=== PATIENT | male | born 1955 | race African-American/Black ===

== ENCOUNTER 2016-10-18 00:51 | Emergency (ER) | payer OTHER ==
[~2016-10-18 00:51] MED LIST: ACETAMINOPHEN PO; ACID CONTROL20 MG PO; ALBUTEROL17 GM INH; ALENDRONATE SOD70 MG PO; AMLODIPINE BESY10 MG PO; AMOXICILLIN875 MG PO; ASPIRIN ENTERI325 M1 PO; BENAZEPRIL PO; CIPRO PO; COLACE50 MG PO; COMBIVENT INH14.7 GM INH; CORRECTOL5 MG PO; DELSYM30 MG/5 ML PO; DOC-Q-LACE100 MG PO; E-MYCIN250 MG PO; EC-NAPROSYN500 MG PO; ERYTHROMYCIN TOP; FAMOTIDINE20 M1 PO; FLOVENT HFA12 GM INH; FOSAMAX PO; FOSAMAX70 MG PO; GLUCOPHAGE XR500 MG PO; GLUCOPHAGE500 MG PO; HYDROCODON-ACE1 EAC9 PO; K-DUR20 ME1 PO; KCL PO; LABETALOL HCL200 MG PO; LASIX PO; LASIX20 MG PO; LEVAQUIN PO; LIPITOR PO; LISINOPRIL PO; LISINOPRIL10 MG PO; LISINOPRIL5 MG PO; LORTAB 10/500 T1 TAB PO; LORTAB 7.5-5001 TAB PO; LORTAB 7.51 TAB 7.5/ PO; MEDROL DOSEPAK4 MG PO; METFORMIN PO; MULTIVITAMIN W/1 TAB PO; NORVASC10 MG PO; PHENERGAN W/CO120 ML PO; POTASSIUM CHLO10 MEQ PO; PREVACID PO; PROMETHAZINE V240 ML PO; PROMETHAZINE-D240 ML PO; STOOL SOFTENER PO; STOOL SOFTENER50 MG PO; TUSSIONEX PENN473 ML PO; VALACYCLOVIR500 MG PO; VALTREX PO; VALTREX500 MG PO; VASOTEC PO; VOLTAREN50 MG PO; [UNRECOGNIZED DRUG - OTHER] PO
== END 2016-10-18 06:50 | disposition home or self-care (01) ==
LOC: CED 00:51
DX: F10.129 Alcohol abuse with intoxication, unspecified (principal); E11.9 Type 2 diabetes mellitus without complications; I11.0 Hypertensive heart disease with heart failure; I50.9 Heart failure, unspecified; F17.200 Nicotine dependence, unspecified, uncomplicated; Z91.041 Radiographic dye allergy status
CPT/HCPCS: 99284

== ENCOUNTER 2016-11-05 06:00 | Inpatient (IN) | payer OTHER ==
--- NOTE | ~2016-11-05 | CO ---
Unit #: [id number] #: [id number] Patient: DANNY DUTTA [id number] [facility] [address] [place] [address] [id number] I MR#: [id number] NAME: DANNY DUTTA ROOM: P130 Age: 60 Sex: M Admission Date: 11/05/2016 : 1955 Attending Physician: Brijesh Rincon M.D. Primary Care Physician: Generic Doctor Not In System CONSULTATION REPORT REASON FOR CONSULTATION History of hypertension, diabetes, heart failure. SUBJECTIVE "Yea I have all that. I have heart failure, I have hypertension, I have diabetes and I just got out of [facility] yesterday and I don't have my medicines." OBJECTIVE Vital signs within normal limits. Heart regular rate and rhythm. Lungs clear to auscultation bilaterally. Noted trace edema bilateral feet. ASSESSMENT We will order medications that the patient was on upon discharge from this facility in February and we will request discharge summary from [facility]. Dictated by... Isabella Leahy/heather TD: 11/07/2016 03:27 JOB #: [id number] CONSULTATION REPORT Page 1 of 1 X Leann Ordaz APR X CONSULTATION REPORT
--- NOTE | ~2016-11-05 | PN ---
Unit #: [id number] #: [id number] Patient: DANNY DUTTA [id number] [facility] [address] [place] [address] [id number] I MR#: [id number] NAME: DANNY DUTTA ROOM: 30 Age: 60 Sex: M Admission Date: 11/05/2016 : 1955 Attending Physician: Brijesh Rincon M.D. Admitting Physician: Brijesh Rincon M.D. Primary Care Physician: Generic Doctor Not In System [facility] PROGRESS NOTES DATE November 08, 2016 DISCUSSION Mr. Dutta is a 60-year-old male, who was seen today and chart was reviewed and the case was discussed with the staff. He has been anxious, withdrawn, but has not shown any agitation, and has been cooperative with the treatment recommendations and he has been taking the medications and tolerating them fairly well with no reported side effects. MENTAL STATUS EXAMINATION Middle-aged male, who was casually dressed with fair personal hygiene and appears to be in no acute distress or discomfort. He was awake and alert with intact orientation. His mood is anxious with a congruent affect. His speech is slow and goal-directed. He reports having suicidal ideations but denies any homicidal ideations. His insight and judgment remain slightly impaired. TREATMENT PLAN 1. We will continue him on his current medications and treatment protocol, and will monitor his response to the medications, and make further adjustments as needed. 2. We will continue to followup. Dictated by... Mercedes Lim/radha TD: 11/09/2016 11:27 JOB #: [id number] Unit #: [id number] #: [id number] Patient: DANNY DUTTA PROGRESS NOTES Page 1 of 1 X Brijesh Rincon MD X PROGRESS NOTE
--- NOTE | ~2016-11-05 | PN ---
Unit #: [id number] #: [id number] Patient: DANNY DUTTA [id number] [facility] [address] [place] [address] [id number] I MR#: [id number] NAME: DANNY DUTTA ROOM: P130 Age: 60 Sex: M Admission Date: 11/05/2016 : 1955 Attending Physician: Brijesh Rincon M.D. Admitting Physician: Brijesh Rincon M.D. Primary Care Physician: Corrina Doctor Not In System [facility] PROGRESS NOTES DATE 11/09/2016 DISCUSSION Mr. Dutta is a 60-year-old male with mood disorder who was seen today and chart was reviewed and case was discussed with the staff. He remains anxious, irritable, restless, and reports persistent depressive symptoms. Meanwhile, he has been taking medications and tolerating them fairly well with no reported side effects. MENTAL STATUS EXAMINATION Middle-aged male who was casually dressed with fair personal hygiene and appears to be in no acute distress or discomfort. He was awake and alert with intact orientation. His mood was anxious with congruent affect. He denies any suicidal or homicidal ideation. His insight and judgement remains slightly impaired. TREATMENT PLAN 1. Will continue on his current treatment protocol. Will monitor response and make further adjustments as needed. 2. Will continue to follow up. Dictated by... Mercedes Lim/nigel TD: 11/09/2016 20:28 JOB #: [id number] Unit #: [id number] #: [id number] Patient: DANNY DUTTA PROGRESS NOTES Page 1 of 1 X Brijesh Rincon MD PROGRESS NOTE
--- NOTE | ~2016-11-05 | PN ---
Unit #: [id number] #: [id number] Patient: DANNY DUTTA [id number] [facility] [address] [place] [address] [id number] I MR#: [id number] NAME: DANNY DUTTA ROOM: P130 Age: 60 Sex: M Admission Date: 11/05/2016 : 1955 Attending Physician: Brijesh Rincon M.D. Admitting Physician: Brijesh Rincon M.D. Primary Care Physician: Generic Doctor Not In System [facility] PROGRESS NOTES DATE November 06, 2016 DISCUSSION Mr. Dutta is a 60-year-old male, who was seen today and chart was reviewed and the case was discussed with the staff. He has been anxious, depressed, restless, and rather seclusive to himself. Meanwhile, he has been cooperative with the treatment recommendations and he has been taking the medications and tolerating them fairly well. MENTAL STATUS EXAMINATION Middle-aged male, who was casually dressed with fair personal hygiene and appears to be in no acute distress or discomfort. He was awake and alert with intact orientation. His mood is anxious with a congruent affect. He denies any suicidal or homicidal ideations. His insight and judgment remain slightly impaired. TREATMENT PLAN 1. We will continue him on his current medications and treatment protocol, and will monitor his response to the medications, and make further adjustments as needed. 2. We will continue to followup. Dictated by... Mercedes Lim/radha TD: 11/07/2016 06:51 JOB #: [id number] Unit #: [id number] #: [id number] Patient: DANNY DUTTA [facility] PROGRESS NOTES Page 1 of 1 X Brijesh Rincon MD X PROGRESS NOTE
--- NOTE | ~2016-11-05 | PA ---
Unit #: [id number] #: [id number] Patient: [facility]UTTA [id number] [facility] [address] [place] [address] [id number] I MR#: [id number] NAME: DANNY DUTTA ROOM: P130 Age: 60 Sex: M Admission Date: 11/05/2016 : 1955 Date of Assessment: Attending Physician: Brijesh Rincon M.D. Admitting Physician: Brijesh Rincon M.D. Primary Care Physician: Corrina Doctor Not In System PSYCHIATRIC ASSESSMENT DATE OF SERVICE 11/05/2016. IDENTIFYING DATA Mr. Dutta is a 60-year-old single male, who is a resident of [place], [place], and is known to us from previous encounter and he was transferred back to us from [facility] Emergency Room on a voluntary basis. CHIEF COMPLAINT "I'm having suicidal thoughts." HISTORY OF PRESENT ILLNESS Mr. Dutta is a 60-year-old male with history of mood disorder and substance abuse, who was transferred to us from [facility] Emergency Room, where he presented stating he was having suicidal thoughts "I got into a fight with my cousin and threatened to shoot him and shoot myself. I need to get back on my meds, Seroquel and trazodone, I've not had it in a year, I've been in nursing home." The ER nurse reported that the patient arrived complaining of shortness of breath and suicidal ideation and plan to shoot himself and his drug screen was positive for benzodiazepines and cocaine and his blood alcohol level was 0.168. He was medically cleared and then transferred to us. SUBSTANCE ABUSE HISTORY The patient reports history of substance abuse and dependence including alcohol, benzodiazepines, and cocaine, and currently, alcohol appears to be his drug of choice as he reports that he has been drinking "a whole lot." PAST PSYCHIATRIC HISTORY The patient has had a history of multiple inpatient psychiatric and chemical dependency treatments at [facility] and has a history of poor compliance with outpatient treatment recommendations and has been diagnosed and treated for bipolar disorder, and he is supposed to be on Seroquel, but has been noncompliant with the medication and as such, has been decompensating. PAST MEDICAL HISTORY Hypertension, COPD, coronary artery disease, diabetes mellitus, and genital herpes. ALLERGIES Unit #: [id number] #: [id number] Patient: DANNY DUTTA. PERSONAL AND SOCIAL HISTORY A 60-year-old male, who reports that he is single, unemployed, and lives alone and has poor social support system. MENTAL STATUS EXAMINATION Middle-aged male, who was casually dressed with fair personal hygiene, appears to be in no acute distress or discomfort. He was awake and alert on interaction with intact orientation to time, place, and person. His mood was anxious and depressed with a congruent affect. His speech was slow and goal directed. His thought processes were disorganized with some looseness of associations and flight of ideas and suicidal ideations. His insight and judgment remain significantly impaired. DIAGNOSTIC IMPRESSION Psychiatric: Bipolar disorder, most recent episode depressed, recurrent, moderate, without psychotic features; alcohol dependence, moderate, in acute withdrawals; cocaine dependence, moderate; and cannabis dependence, moderate. Medical: Chronic obstructive pulmonary disease, coronary artery disease, hypertension, diabetes mellitus, and genital herpes. Stressors: Moderate psychosocial stressors. TREATMENT PLAN 1. The patient has presented with a history of mood disorder and substance abuse and has been decompensating and will need inpatient hospitalization for detoxification, safety, and stabilization. We will start him back on his home medications. We will adjust the medications and monitor response. 2. Supportive therapy was provided to the patient. 3. Safe, structured, and nourishing environment will be provided. ESTIMATED LENGTH OF STAY 5 to 7 days. ABILITY TO HELP SELF Limited. WILLINGNESS TO HELP SELF The patient appears to be willing to help self. STRENGTHS 1. Communicative. 2. Cooperative. PROBLEMS 1. Chronic dysphoric symptoms. 2. Chronic chemical dependency. 3. Poor social support system. DISCHARGE CRITERIA This will be contingent upon the patient's ability to show resolution of his depression and anxiety and his ability to stay safe to himself and others, particularly after discharge from the hospital. Dictated by... Unit #: [id number] #: [id number] Patient: DANNY DUTTA Mercedes Lim/shakir TD: 11/06/2016 14:44 JOB #: [id number] PSYCHIATRIC ASSESSMENT Page 1 of 1 X Brijesh Rincon MD PSYCHIATRIC ASSESSMENT
--- NOTE | ~2016-11-05 | HP ---
Unit #: [id number] #: [id number] Patient: DANNY DUTTA [id number] [facility] [place] [address] [id number] I MR#: [id number] NAME: DANNY DUTTA ROOM: P130 Age: 60 Sex: M Admission Date: 11/05/2016 : 1955 Attending Physician: Brijesh Rincon M.D. Admitting Physician: Brijesh Rincon M.D. Primary Care Physician: Generic Doctor Not In System HISTORY AND PHYSICAL HISTORY OF PRESENT ILLNESS The patient is a 60-year-old male who states he is here due to depression and homicidal ideation. PAST MEDICAL HISTORY Significant for hypertension, chronic obstructive pulmonary disease diabetes type II and congestive heart failure. PAST SURGICAL HISTORY None. SOCIAL HISTORY Positive for smoking, alcohol and drugs. ALLERGIES The patient states none. FAMILY HISTORY Noncontributory. REVIEW OF SYSTEMS CONSTITUTIONAL: No fever or chills. HEENT: Denies any sore throat, ear pain or runny nose. CARDIOVASCULAR: Denies chest pain, irregular heart rhythm or palpitations. CHEST: Denies shortness of breath or cough. No hemoptysis. GASTROINTESTINAL: Denies nausea, vomiting, diarrhea or chronic constipation. ENDOCRINE: Denies history of increased thirst or urination. No recent significant weight loss or gain. GENITOURINARY: Denies dysuria, frequency, or hematuria. SKIN: Denies any rashes. HEMATOLOGIC: Denies history of increased bleeding or bruising. MUSCULOSKELETAL: Denies any hot, swollen joints. No generalized muscle pain. NEUROLOGIC: Denies problems with vision or speech. No frequent, severe headaches. No numbness, tingling or weakness in any extremities. Denies loss of bladder or bowel control. CURRENT MEDICATIONS 1. To be reordered Norvasc 10 mg p.o. daily. 2. Aspirin 81 mg p.o. daily. Unit #: [id number] #: [id number] Patient: DANNY DUTTA 3. Lipitor 80 mg p.o. q.h.s. 4. Lasix 40 mg p.o. daily 5. Glucophage 1000 mg p.o. twice daily. PHYSICAL EXAMINATION GENERAL: Alert, oriented in no acute distress. VITAL SIGNS: Blood pressure 152/70, heart rate 74, respirations 16. HEIGHT: 6 feet WEIGHT: 350 pounds SKIN: Surgical scar to the left hip, trace edema to bilateral feet. HEENT: Normocephalic. TMs not viewed. Oral and nasal passages clear. Conjunctivae clear. PERRLA. EOMs intact. NECK: Supple without lymphadenopathy or thyromegaly. HEART: Regular rate and rhythm without murmur. LUNGS: Clear. ABDOMEN: Soft, nontender, without masses or hepatosplenomegaly. : Not done. EXTREMITIES: No evidence of cyanosis, clubbing or edema. Moves all without focal deficit. NEUROLOGICAL: Grossly within normal limits. Cranial Nerves: II: Visual clark are intact. III, IV AND : Extraocular movements are intact. Pupils are equal, round and reactive to light. V: Facial sensation is grossly normal. VII: Facial movements and expression are normal. VIII: Auditory acuity grossly intact. IX, X: Uvula is midline. Phonation is normal. XI: Patient shrugs shoulders and turns head normally. XII: Tongue protrudes in the midline. Sensory and Motor Function: Sensory and motor sensation is grossly normal. Motor: moves all extremities well. Coordination: Gait is normal. Deep Tendon Reflexes: Intact. IMPRESSION Psychiatric admission RECOMMENDATIONS Psychiatric, per psychiatrist. MEDICAL: I see no contraindications to participating in facility's activities. MEDICAL PROGNOSIS Good. Dictated by... Isabella Leahy/heather TD: 11/07/2016 03:17 JOB #: [id number] Unit #: [id number] #: [id number] Patient: DANNY DUTTA HISTORY AND PHYSICAL Page 1 of 1 X Leann Ordaz APR X HISTORY AND PHYSICAL
--- NOTE | ~2016-11-05 | PN ---
Unit #: [id number] #: [id number] Patient: DANNY DUTTA [id number] [facility] [address] [place] [address] [id number] MR#: [id number] NAME: DANNY DUTTA ROOM: P130 Age: 60 Sex: M Admission Date: 11/05/2016 : 1955 Attending Physician: Brijesh Rincon M.D. Admitting Physician: Brijesh Rincon M.D. Primary Care Physician: Generic Doctor Not In System [facility] PROGRESS NOTES DATE November 07, 2016 DISCUSSION Mr. Dutta is a 60-year-old male, who was seen today and chart was reviewed and the case was discussed with the staff. He has been anxious, withdrawn, and rather seclusive to himself. Meanwhile, he has been cooperative with the treatment recommendations and he has been taking the medications and tolerating them fairly well. MENTAL STATUS EXAMINATION Middle-aged male, who was casually dressed with fair personal hygiene and appears to be in no acute distress or discomfort. He was awake and alert with impaired attention and concentration. His mood is anxious with a congruent affect. He reports having suicidal ideation but denies any homicidal ideations. His insight and judgment remain slightly impaired. TREATMENT PLAN 1. We will continue him on his current treatment protocol, and will monitor his response to the medications, and make further adjustments as needed. 2. We will continue to followup. Dictated by... Mercedes Lim/radha TD: 11/08/2016 09:38 JOB #: [id number] Unit #: [id number] #: [id number] Patient: DANNY DUTTA [facility] PROGRESS NOTES Page 1 of 1 X Brijesh Rincon MD X PROGRESS NOTE
--- NOTE | ~2016-11-05 | DS ---
Unit #: [id number] #: [id number] [facility]: [facility]UTTA [id number] [facility] [address] [place] [address] [id number] I MR#: [id number] NAME: DANNY DUTTA ROOM: 30 Age: 60 Sex: M Admission Date: 11/05/2016 : 1955 Discharge Date: 11/11/2016 Attending Physician: Brijesh Rincon M.D. Primary Care Physician: Generic Doctor Not In System DISCHARGE SUMMARY IDENTIFYING DATA Mr. Dutta is a 60-year-old, single, male who is a resident of [place], [place] and is known to us from previous encounter and was self-referred to the hospital. DISCHARGE DIAGNOSES Psychiatric: Bipolar disorder, most recent episode depressed, recurrent, moderate, without psychotic features; alcohol dependence, moderate and acute withdrawals; cocaine dependence, moderate; cannabis dependence, moderate. Medical: Chronic obstructive pulmonary disease, coronary artery disease, hypertension, diabetes mellitus, genital herpes. Stressors: Moderate psychosocial stressors. HISTORY OF PRESENT ILLNESS Please see initial psychiatric evaluation for details. PAST PSYCHIATRIC HISTORY Please see initial psychiatric evaluation for details. PAST MEDICAL HISTORY Please see initial psychiatric evaluation for details. HOSPITAL COURSE The patient was admitted to the adult chemical dependency and psychiatric [facility] at [facility] and was oriented to the hospital environment. Routine p.r.n. medications were initiated, and he was started back on his home medications and medications were adjusted and he was closely monitored. He was started on Seroquel and was seen to be anxious and restless, though was cooperative with treatment recommendation and was able to show a decent therapeutic response with improvement in depression and anxiety and as such, it was decided that he will be discharged home and will continue treatment on an outpatient basis. DISCHARGE MEDICATIONS Seroquel 100 mg at bedtime. DISCHARGE CONDITION Stable. PROGNOSIS Fair. Unit #: [id number] #: [id number] Patient: DANNY DUTTA Dictated by... Mercedes Lim/carlosl TD: 11/13/2016 17:51 JOB #: [id number] DISCHARGE SUMMARY Page 1 of 1 X Brijesh Rincon MD DISCHARGE SUMMARY
--- NOTE | ~2016-11-05 | PN ---
Unit #: [id number] #: [id number] Patient: DANNY DUTTA [id number] [facility] [address] [place] [address] [id number] I MR#: [id number] NAME: DANNY DUTTA ROOM: P130 Age: 60 Sex: M Admission Date: 11/05/2016 : 1955 Attending Physician: Brijesh Rincon M.D. Admitting Physician: Brijesh Rincon M.D. Primary Care Physician: Corrina Doctor Not In System [facility] PROGRESS NOTES DATE November 10, 2016 DISCUSSION Mr. Dutta is a 60-year-old male, with mood disorder, and substance abuse, who was seen today and chart was reviewed and the case was discussed with the staff. He has been extremely anxious, withdrawn, and seclusive to himself. Meanwhile, he has been cooperative with the treatment recommendations and he has been taking the medications and tolerating them fairly well with no reported side effects. MENTAL STATUS EXAMINATION Middle-aged male, who was casually dressed with fair personal hygiene and appears to be in no acute distress or discomfort. He was awake and alert with impaired attention and concentration. His mood is anxious with a congruent affect. His speech is slow and restricted in content. His thought processes are disorganized with some looseness of associations. His insight and judgment remain significantly impaired. TREATMENT PLAN 1. We will continue him on his current medications and treatment protocol, and will monitor his response to the medications, and make further adjustments as needed. 2. We will continue to followup. Dictated by... Mercedes Lim/radha TD: 11/10/2016 12:53 JOB #: [id number] Unit #: [id number] #: [id number] Patient: DANNY DUTTA PROGRESS NOTES Page 1 of 1 X Brijesh Rincon MD PROGRESS NOTE
== END 2016-11-11 11:29 | disposition home or self-care (01) | DRG 885 ==
LOC: P1S 12:18 → P1E 12:18 → P1S 11-06 16:00
PROC: HZ2ZZZZ Detoxification Services for Substance Abuse Treatment (ICD-10-PCS; principal; 2016-11-05)
DX: F31.32 Bipolar disorder, current episode depressed, moderate (principal); F14.20 Cocaine dependence, uncomplicated; I50.9 Heart failure, unspecified; F10.239 Alcohol dependence with withdrawal, unspecified; F12.20 Cannabis dependence, uncomplicated; J44.9 Chronic obstructive pulmonary disease, unspecified; I25.10 Atherosclerotic heart disease of native coronary artery without angina pectoris; I10 Essential (primary) hypertension; A60.00 Herpesviral infection of urogenital system, unspecified; R45.850 Homicidal ideations; F17.210 Nicotine dependence, cigarettes, uncomplicated; Z79.82 Long term (current) use of aspirin

== ENCOUNTER 2016-12-02 12:24 | Inpatient (IN) | payer OTHER ==
[~2016-12-02] VITALS: Ht 172.7 cm; Wt 113.4 kg
--- NOTE | ~2016-12-02 | PN ---
Unit #: [id number] #: [id number] Patient: DANNY DUTTA [id number] [facility] [address] [place] [address] [id number] I MR#: [id number] NAME: DANNY DUTTA ROOM: [facility] [place] Age: 60 Sex: M Admission Date: 12/02/2016 : 1955 Attending Physician: Brijesh Rincon M.D. Admitting Physician: Brijesh Rincon M.D. Primary Care Physician: Generic Doctor Not In System [facility] PROGRESS NOTES DATE December 04, 2016 DISCUSSION Mr. Dutta is a 60-year-old male, who was seen today and chart was reviewed and the case was discussed with the staff. He has been anxious, withdrawn, and seclusive to himself. Meanwhile, he has been cooperative with the treatment recommendations and he has been taking the medications, and tolerating them fairly well with no reported side effects. MENTAL STATUS EXAMINATION Middle-aged male, who was casually dressed with fair personal hygiene and appears to be in no acute distress or discomfort. He was awake and alert with intact orientation. His mood is anxious with a congruent affect. He denies any suicidal or homicidal ideations. His insight and judgment remain slightly impaired. TREATMENT PLAN 1. We will continue him on his current medications and treatment protocol, and will monitor his response to the medications, and make further adjustments as needed. 2. We will continue to followup. Dictated by... Mercedes Lim/radha TD: 12/05/2016 12:24 JOB #: [id number] Unit #: [id number] #: [id number] Patient: DANNY DUTTA PROGRESS NOTES Page 1 of 1 X Brijesh Rincon MD PROGRESS NOTE
--- NOTE | ~2016-12-02 | PA ---
Unit #: [id number] #: [id number] Patient: DANNY DUTTA [id number] [facility] [address] [place] [address] [id number] I MR#: [id number] NAME: DANNY DUTTA ROOM: 61 Age: 60 Sex: M Admission Date: 12/02/2016 : 1955 Date of Assessment: Attending Physician: Brijesh Rincon M.D. Admitting Physician: Brijesh Rincon M.D. PSYCHIATRIC ASSESSMENT DATE OF SERVICE 12/02/2016. IDENTIFYING DATA Mr. Dutta is a 60-year-old single male, who is a resident of [place], [place], and is known to us from previous multiple encounters and was transferred to us from [facility]. CHIEF COMPLAINT "I am suicidal and homicidal." HISTORY OF PRESENT ILLNESS Mr. Dutta is a 60-year-old male, who reports that he is having a nervous breakdown and came to the emergency room. He reports that he ran out of his Seroquel and trazodone a couple of weeks ago and that he is having bad dreams and having visual hallucination and that he has been seeing demons and has demons tell him to kill himself and kill everyone else, and reports last night he and his girlfriend had a verbal altercation and "I might get a pistol and shoot somebody she is first in my life." He reports he currently wants to kill himself and thinking about jumping into traffic and was seen to be a significant danger to self and others and as such, recommendation for inpatient level of care for safety and stabilization was made and the patient was transferred to us. SUBSTANCE ABUSE HISTORY The patient reports history of occasional alcohol abuse, but denies any regular substance abuse issues. PAST PSYCHIATRIC HISTORY The patient has had multiple inpatient psychiatric hospitalizations. It appears that he has been to [facility] around 54 times and has been diagnosed and treated for bipolar disorder and has history of poor compliance with all forms of treatment including outpatient psychiatric followup as well as medications and currently he is not seeing a psychiatrist and is not taking psychotropic medications. PAST MEDICAL HISTORY Hypertension, asthma, diabetes mellitus, COPD, congestive heart failure. ALLERGIES Lisinopril and iodine. PERSONAL AND SOCIAL HISTORY Unit #: [id number] #: [id number] Patient: DANNY DUTTA A 60-year-old male, who reports that he is single, unemployed, and essentially homeless and has poor social support system. MENTAL STATUS EXAMINATION Middle-aged male, who was casually dressed with fair personal hygiene, appears to be in no acute distress or discomfort. He was awake and alert on interaction with intact orientation to time, place, and person. His mood was anxious and depressed with a congruent affect. His speech was slow and restricted in content. His thought processes were disorganized with some looseness of associations and flight of ideas. His insight and judgment remain significantly impaired. DIAGNOSTIC IMPRESSION Psychiatric: Bipolar disorder, most recent episode depressed, recurrent, moderate, without psychotic features. Medical: Hypertension, asthma, diabetes mellitus, chronic obstructive pulmonary disease, degenerative disk disease. Stressors: Moderate psychosocial stressors. TREATMENT PLAN 1. The patient has presented with a history of mood disorder and has been decompensating and will need inpatient hospitalization for safety and stabilization. We will start him back on his home medications. We will adjust the medications and monitor response. 2. Supportive therapy was provided to the patient. 3. Safe, structured, and nourishing environment will be reported. ESTIMATED LENGTH OF STAY 4 to 5 days. ABILITY TO HELP SELF Limited. WILLINGNESS TO HELP SELF The patient appears to be willing to help self. STRENGTHS 1. Communicative. 2. Cooperative. PROBLEMS 1. Chronic dysphoric symptoms. 2. Chronic chemical dependency. 3. Poor social support system. DISCHARGE CRITERIA This will be contingent upon the patient's ability to show resolution of his depression and anxiety and his ability to stay safe to himself, particularly after discharge from the hospital. Dictated by... Mercedes Lim/shakir TD: 12/03/2016 12:31 JOB #: [id number] Unit #: [id number] #: [id number] Patient: DANNY DUTTA PSYCHIATRIC ASSESSMENT Page 1 of 1 X Brijesh Rincon MD PSYCHIATRIC ASSESSMENT
--- NOTE | ~2016-12-02 | PN ---
Unit #: [id number] #: [id number] Patient: DANNY DUTTA [id number] [facility] [address] [place] [address] [id number] I MR#: [id number] NAME: DANNY DUTTA ROOM: [facility] Age: 60 Sex: M Admission Date: 12/02/2016 : 1955 Attending Physician: Brijesh Rincon M.D. Admitting Physician: Brijesh Rincon M.D. Primary Care Physician: Generic Doctor Not In System [facility] PROGRESS NOTES DATE 12/06/2016 DISCUSSION Mr. Dutta is a 60-year-old male who was seen today and chart was reviewed and case was discussed with the staff. Anxious, withdrawn. Meanwhile, he has been cooperative with treatment recommendations and has been taking medications and tolerating them fairly well with no reported side effects. MENTAL STATUS EXAMINATION Middle-aged male who was casually dressed with fair personal hygiene and appears to be in no acute distress or discomfort. He was awake and alert on interaction with intact orientation. His mood was anxious and depressed with congruent affect. His speech is slow and goal-directed. He denies any suicidal or homicidal ideation and also denies any auditory or visual hallucinations. His insight and judgement remains slightly impaired. TREATMENT PLAN 1. Will continue his current medications and treatment protocol. Will monitor his response to the medications and make further adjustments as needed. 2. Will continue to follow up. Dictated by... Mercedes Lim/ngiel TD: 12/06/2016 22:47 JOB #: [id number] Unit #: [id number] #: [id number] Patient: DANNY DUTTA PROGRESS NOTES Page 1 of 1 X Brijesh Rincon MD X PROGRESS NOTE
--- NOTE | ~2016-12-02 | HP ---
Unit #: [id number] #: [id number] Patient: DANNY DUTTA [id number] [facility] [address] [place] [address] [id number] MR#: [id number] NAME: DANNY DUTTA ROOM: [facility] Age: 60 Sex: M Admission Date: 12/02/2016 : 1955 Attending Physician: Brijesh Rincon M.D. Admitting Physician: Brijesh Rincon M.D. Primary Care Physician: Generic Doctor Not In System HISTORY AND PHYSICAL REASON FOR ADMISSION Acute psychiatric inpatient admission, suicidal ideations, visual hallucinations. HISTORY OF PRESENT ILLNESS The patient is a 60-year-old male with prior history of hypertension, diabetes, noncompliant with medications, admitted secondary to the same. PAST MEDICAL HISTORY Diabetes to which he is noncompliant with medications in the past was insulin-dependent, but he states he no longer takes. He off and on takes his metformin. He did not check his blood sugars at home. Prior history of prostate carcinoma, hypertension, major depressive disorder. CURRENT HOME MEDICATIONS Seroquel, potassium, ibuprofen, Lasix, multivitamin, folic acid, metformin. ALLERGIES Iodine, lisinopril, Coumadin, aspirin, amiodarone, also noted however I am not sure if the patient is actually taking these medications. SOCIAL HISTORY Tobacco, alcohol, substance abuse noted. REVIEW OF SYSTEMS Please see HPI. Twelve point otherwise negative except for those noted in the HPI. PHYSICAL EXAMINATION VITAL SIGNS: Temperature 98.1, pulse 92, respiratory rate 18, blood pressure 166/75. GENERAL: Awake, alert, oriented to person, place, and time. Well built, well nourished. Does not appear to be in any acute distress. HEAD: Atraumatic. Normocephalic. EYES: Bilateral extraocular muscles are normal. Pupils equal, reactive to light and accommodation. Sclerae are normal. No jaundice. NECK: Neck is supple. No neck rigidity. No thyromegaly. No carotid bruit. No JVD. Oral mucosa is moist. CHEST: Bilateral vesicular breathing. Clear to auscultation. No basilar rales. CARDIOVASCULAR: S1 and S2 normal. No murmur, no gallop, no rub. ABDOMEN: Soft, nontender. No organomegaly. Bowel sounds are normal. No hernia, no masses, no rebound, no guarding. Unit #: [id number] #: [id number] Patient: DANNY DUTTA EXTREMITIES: No pitting edema. No calf tenderness. Extremity pulses, including dorsalis pedis, have good volume. BACK: Normal spine curvature. No spine tenderness. No costovertebral angle tenderness. KENNEL HAND: Cranial nerves normal bilaterally. Motor function bilaterally symmetric and normal. Sensory system normal. SKIN: Warm and dry. Please insert normal physical examination template initial. INITIAL IMPRESSION 1. Acute psychiatric inpatient admission. 2. Diabetes, questionable control. 3. Noncompliance with medications. 4. Hypertension. 5. Questionable chronic anticoagulation. 6. Possible underlying cardiac arrhythmia and atrial fibrillation. 7. Poor social support. 8. Visual/auditory hallucinations. PLAN As per psychiatrist, there are no medical contraindications to patient participating in activities while here at [facility]. Dictated by... Lynne Benoit M.D. LUNA/shakir TD: 12/03/2016 17:16 JOB #: [id number] HISTORY AND PHYSICAL Page 1 of 1 X Lynne Benoit MD X HISTORY AND PHYSICAL
--- NOTE | ~2016-12-02 | CO ---
Unit #: [id number] #: [id number] Patient: DANNY DUTTA [id number] [facility] [address] [place] [address] [id number] I MR#: [id number] NAME: DANNY DUTTA ROOM: [facility] Age: 60 Sex: M Admission Date: 12/02/2016 : 1955 Attending Physician: Brijesh Rincon M.D. Consultation Date: 12/03/2016 CONSULTATION REPORT REASON FOR CONSULTATION Medical management. HISTORY OF PRESENT ILLNESS The patient is a 60-year-old male with longstanding history of noncompliance with medications, not the best historian, tells me that he does not routinely take his medications as prescribed. He has had various medications including Coumadin, amiodarone, blood-pressure medications metformin as well as he states that he was on insulin in the past. Again, he is a poor historian and there were no clear justifications for any of his medications. He does have a prior history of prostate carcinoma. He is currently being admitted secondary to suicidal ideation as well as visual or auditory hallucinations. Upon review and discussion with the patient, he states that he used to follow up with the primary care physician, but secondary to being homeless as well as poor social support. He is unable to afford medications and/or get his prescriptions. He does take routine vitamin secondary to prior history of alcohol abuse. INITIAL IMPRESSION 1. Diabetes with questionable control. 2. Hypertension history. 3. Questionable history and/or need for chronic anticoagulation. PLAN At this point in time, we will hold off on any chronic anticoagulation, Coumadin or such. Perhaps, I would give consideration to checking an EKG to ensure that he is in normal sinus, checking hemoglobin A1c. Accu-Cheks will be ordered as well. He states that he only takes metformin periodically. In the past, he was given insulin at this point. No insulin will be prescribed unless his blood sugar is greater than 400. He does not have any current clinical need for potassium supplements, further medications in regard to his underlying psychiatric illness, may be as per the discussion of the psychiatrist, but from my standpoint, I will continue his metformin only with routine laboratory studies as stated above. Please call with any questions or concerns. Thank you, Dr. Rincon for this consultation. Dictated by... Lynne Benoit M.D. ISN/shakir Unit #: [id number] #: [id number] Patient: DANNY DUTTA TD: 12/03/2016 18:39 JOB #: [id number] CONSULTATION REPORT Page 1 of 1 X Lynne Benoit MD X CONSULTATION REPORT
--- NOTE | ~2016-12-02 | EKG ---
PATIENT: DANNY DUTTA UNIT #: [id number] Ventricular Rate: 67 BPM Atrial Rate: 67 BPM P-R Interval: 192 ms QRS Duration: 108 ms Q-T Interval: 378 ms QTC Calculation(Bezet): 399 ms P [place]: 56 degrees Calculated R [place]: 46 degrees Calculated T [place]: 66 degrees Diagnosis Line: Normal sinus rhythm Diagnosis Line: Normal ECG Diagnosis Line: When compared with ECG of 23-DEC-2015 07:23, Diagnosis Line: No significant change was found Diagnosis Line: Confirmed by NATHALIE PURCELL MD ([id number]) on Diagnosis Line: 12/05/2016 8:55:42 AM INTERPRETING MD: JAZZY SHEPPARD
--- NOTE | ~2016-12-02 | PN ---
Unit #: [id number] #: [id number] Patient: DANNY DUTTA [id number] [facility] [address] [place] [address] [id number] I MR#: [id number] NAME: DANNY DUTTA ROOM: [facility] Age: 60 Sex: M Admission Date: 12/02/2016 : 1955 Attending Physician: Brijesh Rincon M.D. Admitting Physician: Brijesh Rincon M.D. Primary Care Physician: Generic Doctor Not In System [facility] PROGRESS NOTES DATE 12/03/2016 DISCUSSION Mr. Dutta is a 60-year-old male who was seen today and chart was reviewed and case was discussed with the staff. He has been anxious, withdrawn, depressed and rather seclusive to himself though he has been taking medications and tolerating them fairly well with no reported side effects. MENTAL STATUS EXAMINATION Middle-aged male who was casually dressed with fair personal hygiene and appears to be in no acute distress or discomfort. He was awake and alert with impaired attention and concentration. His mood was anxious with congruent affect. He denies any suicidal or homicidal ideations. His insight and judgement remains slightly impaired. TREATMENT PLAN 1. Will continue him on his current medications and treatment protocol. Will monitor his response to the medications and make further adjustments as needed. 2. Will continue to follow up. Dictated by... Mercedes Lim/nigel TD: 12/03/2016 22:52 JOB #: [id number] Unit #: [id number] #: [id number] Patient: DANNY DUTTA PROGRESS NOTES Page 1 of 1 X Brijesh Rincon MD X PROGRESS NOTE
--- NOTE | ~2016-12-02 | PN ---
Unit #: [id number] #: [id number] Patient: DANNY DUTTA [id number] [facility] [address] [place] [address] [id number] MR#: [id number] NAME: DANNY DUTTA ROOM: [facility] Age: 60 Sex: M Admission Date: 12/02/2016 : 1955 Attending Physician: Brijesh Rincon M.D. Admitting Physician: Brijesh Rincon M.D. Primary Care Physician: Corrina Doctor Not In System [facility] PROGRESS NOTES DATE OF SERVICE: 12/05/2016 SUBJECTIVE Mr. Dutta is a 60-year-old male, who was seen today and chart was reviewed and the case was discussed with the staff. He remains anxious, withdrawn, depressed, and rather seclusive to himself. Meanwhile, he has been cooperative with the treatment recommendations and has been taking the medications and tolerating them fairly well with no reported side effects. MENTAL STATUS EXAMINATION Middle-aged male, who was casually dressed with fair personal hygiene, appears to be in no acute distress or discomfort. He was awake and alert with impaired attention and concentration. His mood was anxious with a congruent affect. His speech was slow and goal directed. He denies any suicidal or homicidal ideations and also denies any auditory or visual . TREATMENT PLAN 1. We will continue him on his current medications and treatment protocol. We will monitor his response to the medications and make further adjustments as needed. 2. We will continue to follow up. Dictated by... Mercedes Lim/shakir TD: 12/05/2016 10:26 JOB #: [id number] Unit #: [id number] #: [id number] [facility] PRO[facility]ESS NOT[facility] Page 1 of 1 X Brijesh Rincon MD PROGRESS NOTE
--- NOTE | ~2016-12-02 | DS ---
Unit #: [id number] #: [id number] Patient: DANNY DUTTA [id number] [facility] [address] [place] [address] [id number] I MR#: [id number] NAME: DANNY DUTTA ROOM: [facility] Age: 60 Sex: M Admission Date: 12/02/2016 : 1955 Discharge Date: 12/07/2016 Attending Physician: Brijesh Rincon M.D. Primary Care Physician: Generic Doctor Not In System DISCHARGE SUMMARY IDENTIFYING DATA Mr. Dutta is a 60-year-old single, male, who is a resident of [place], [place], and is known to us from previous multiple encounters and was transferred to us from [facility]. DISCHARGE DIAGNOSES Psychiatric: Bipolar disorder, most recent episode of depressed, recurrent, moderate, without psychotic features. Medical: Hypertension, asthma, diabetes mellitus, chronic obstructive pulmonary disease, degenerative disk disease. Stressors: Moderate psychosocial stressors. HISTORY OF PRESENT ILLNESS Please copy and paste from initial psychiatric evaluation for details. PAST PSYCHIATRIC HISTORY Please copy and paste from initial psychiatric evaluation for details. PAST MEDICAL HISTORY Please copy and paste from initial psychiatric evaluation for details. HOSPITAL COURSE The patient was admitted to the adult psychiatric unit at [facility] and was oriented to the hospital environment. Routine p.r.n. medications were initiated, and he was started back on home medications. Seroquel was started back as a mood stabilizer and was closely monitored. He was taking medications regularly. He is tolerating them fairly well and was able to show a decent therapeutic response with improvement in depression and anxiety, and was willing to continue treatment on an outpatient basis and as such, it was decided that he will be discharged home. We will continue treatment on an outpatient basis. DISCHARGE MEDICATIONS Seroquel 100 mg at bedtime for bipolar disorder. DISCHARGE CONDITION Stable. PROGNOSIS Fair. Dictated by... Brijesh Rincon M.D. Unit #: [id number] #: [id number] Patient: DANNY DUTTA IAA/modl TD: 12/07/2016 08:40 JOB #: [id number] DISCHARGE SUMMARY Page 1 of 1 X Brijesh Rincon MD DISCHARGE SUMMARY
[2016-12-04 10:56] LABS: BASOPHIL% 0.5 % (0-2.5); EOSINOPHIL# 0.1 X10e3 (0-0.7); EOSINOPHIL% 2.9 % (0.0-7.0); HEMATOCRIT 37.3 % (38.0-50.0); HEMOGLOBIN 12.6 gm/dL (13.0-16.0); LYMPHOCYTE# 1.5 X10e3 (1.0-3.5); LYMPHOCYTE% 33.2 % (17.0-45.0); MEAN CELL VOLUME 87.4 FL (83-96); MEAN CORPUSCULAR HEMOGLOBIN 29.6 PG (28-34); MEAN CORPUSCULAR HGB CONC 33.9 g/dL (30-36); MEAN PLATELET VOLUME 7.7 FL (6.5-11.5); MONOCYTE# 0.4 X10e3 (0-1.0); MONOCYTE% 9.7 % (3.0-12.0); NEUTROPHIL# 2.5 X10e3 (1.5-7.1); NEUTROPHIL% 53.7 % (40-75); PLATELET COUNT 201 X10e3 (140-420); RED BLOOD COUNT 4.27 X10e (3.90-5.60); RED CELL DISTRIBUTION WIDTH 14.2 % (11.0-15.5); WHITE BLOOD COUNT 4.6 X10e3 (4.0-10.5)
[2016-12-04 11:06] LABS: DIFF IND NO
[2016-12-04 11:15] LABS: INR 1.1; PROTHROMBIN TIME (PATIENT) 11.5 SECONDS (10.0-11.7)
[2016-12-04 12:39] LABS: BUN/CREATININE RATIO 13.33; CALCIUM SERUM 9.8 mg/dL (8.4-10.2); CREATININE SERUM 0.6 mg/dL (0.6-1.4); GLOM FILT RATE Estimated 127.6 mL/min (>60); POTASSIUM 3.4 mmol/L (3.5-5.1)
[2016-12-04 12:48] LABS: BILIRUBIN,TOTAL 0.4 mg/dL (0.2-2.0); BUN/CREATININE RATIO 12.85; CALCIUM SERUM 9.7 mg/dL (8.4-10.2); CREATININE SERUM 0.7 mg/dL (0.6-1.4); GLOM FILT RATE Estimated 119.8 mL/min (>60); POTASSIUM 3.3 mmol/L (3.5-5.1); PROTEIN TOTAL SERUM 5.6 g/dL (6.0-8.3)
[2016-12-05 09:41] LABS: URINE APPEARANCE CLEAR; URINE BILIRUBIN NEG (NEG); URINE BLOOD NEG (NEG); URINE COLOR YELLOW; URINE GLUCOSE NEG (NEG); URINE KETONE NEG (NEG); URINE LEUKOCYTE ESTERASE TRACE (NEG); URINE NITRATE NEG (NEG); URINE PH 5.5 (5-8); URINE PROTEIN NEG (NEG); URINE SPECIFIC GRAVITY 1.014 (1.003-1.035); URINE UROBILINOGEN 0.2 MG/DL (NEG)
[2016-12-05 09:44] LABS: URBCS1 AUWI 0-2 /[HPF] (0-2); URINE BACTERIA AUWI NEG (NEGATIVE); URINE SQUAMOUS EPITHELIAL CELL NONE SEEN /[HPF]
[2016-12-05 10:37] LABS: AMPHETAMINE NEG (NEG); BARBITURATES NEG (NEG); BENZODIAZEPINES NEG (NEG); COCAINE NEG (NEG); MARIJUANA NEG (NEG); OPIATES NEG (NEG); TRICYCLIC ANTIDEPRESSANTS POS (NEG); U METHADONE NEG (NEG)
== END 2016-12-07 09:45 | disposition home or self-care (01) | DRG 885 ==
LOC: P2S 17:03 → P2L 17:03
PROVIDERS: Psychiatry & Neurology Psychiatry
DX: F31.32 Bipolar disorder, current episode depressed, moderate (principal); E11.9 Type 2 diabetes mellitus without complications; R45.851 Suicidal ideations; I10 Essential (primary) hypertension; J45.909 Unspecified asthma, uncomplicated; J44.9 Chronic obstructive pulmonary disease, unspecified; Z91.14 Patient's other noncompliance with medication regimen; Z79.84 Long term (current) use of oral hypoglycemic drugs
CPT/HCPCS: 80048; 80053; 80307; 81003; 82947; 83036; 84443; 85025; 85610; 93005

== ENCOUNTER 2016-12-14 05:00 | Inpatient (IN) | payer OTHER ==
[~2016-12-14] VITALS: Ht 175.3 cm; Wt 117.9 kg
--- NOTE | ~2016-12-14 | DS ---
Unit #: [id number] #: [id number] Patient: LARRY DUTTA [id number] [facility] [address] [place] [address] [id number] I MR#: [id number] NAME: LARRY DUTTA. ROOM: [facility] Age: 60 Sex: M Admission Date: 12/14/2016 : 1955 Discharge Date: 12/20/2016 Attending Physician: Flaco Ward M.D. Primary Care Physician: Generic Doctor Not In System DISCHARGE SUMMARY REASON FOR ADMISSION Larry is a 60-year-old man who was placed in this facility, who reported that he was "cleaned out" by a doll surgeon and recently following (1) . He had a blood alcohol of 128. He reported suicidal ideation with a plan to shoot himself and was transferred [facility]. LABORATORY DATA Please see hospital chart. HOSPITAL COURSE Patient was admitted and placed on suicide precautions. Seroquel was restarted and the patient had no evidence of detox symptomatology during his hospital stay. His history and physical examination was unremarkable although he did request use of a walker to assist with ambulation due to his recent injury. [facility] reported his x-rays on his hip were negative for any fracture. The patient was generally pleasant, although somewhat demanding of staff, and on the date of discharge he contracted for safety with no further IS. DISCHARGE DIAGNOSIS AXIS I: Bipolar depressed. Alcohol abuse. AXIS II: Antisocial traits. AXIS III: Hypertension, asthma, diabetes, COPD, degenerative disk disease, recent hip fall. DISCHARGE INSTRUCTIONS Patient is to follow up with primary care physician and [facility] [facility]. DISCHARGE MEDICATIONS Seroquel 100 mg at bedtime for moo. Primary care medicines including Glucophage 1000 mg twice day before meals for diabetes, Lasix 4 mg daily b.i.d. for hypertension. Motrin 600 mg q.6 h. as needed for pain, folic acid 1 tablet daily for folic acid replacement, multivitamin tablet daily general health. CONDITION ON DISCHARGE Improved PROGNOSIS Fair. DIET AND ACTIVITY Per primary care doctor Unit #: [id number] #: [id number] Patient: LARRY DUTTA Dictated by... Flaco Ward M.D. MRH/gz TD: 12/20/2016 12:57 JOB #: [id number] DISCHARGE SUMMARY Page 1 of 1 X Flaco Ward MD DISCHARGE SUMMARY
--- NOTE | ~2016-12-14 | PN ---
Unit #: [id number] #: [id number] Patient: DANNY DUTTA [id number] [facility] [address] [place] [address] [id number] I MR#: [id number] NAME: DANNY DUTTA. [facility] Age: 60 Sex: M Admission Date: 12/14/2016 : 1955 Attending Physician: Flaco Ward M.D. Admitting Physician: Flaco Ward M.D. Primary Care Physician: Generic Doctor Not In System [facility] PROGRESS NOTES DATE 12/20/2016 DISCUSSION The patient is a 60-year-old male who was seen today and chart was reviewed and case was discussed with the staff. He has been anxious, withdrawn and rather seclusive to herself. Meanwhile, he has been cooperative with treatment recommendations and has been coming to therapy groups and has been participating. MENTAL STATUS EXAMINATION Middle-aged male who was casually dressed with fair personal hygiene and appears to be in no acute distress or discomfort. He was awake and alert on interactions with intact orientation. His mood was anxious with congruent affect. He denies any suicidal or homicidal ideation. His insight and judgement remains slightly impaired. TREATMENT PLAN 1. Will continue on his current treatment protocol. Will monitor his response and make further adjustments as needed. 2. Will continue to follow up. Dictated by... Mercedes Lim/nigel TD: 12/20/2016 22:52 JOB #: [id number] Unit #: [id number] #: [id number] Patient: DANNY DUTTA PROGRESS NOTES Page 1 of 1 X Brijesh Rincon MD PROGRESS NOTE
--- NOTE | ~2016-12-14 | PN ---
Unit #: [id number] #: [id number] Patient: DANNY DUTTA [id number] [facility] [address] [place] [address] [id number] I MR#: [id number] NAME: DANNY DUTTA. ROOM: [facility] Age: 60 Sex: M Admission Date: 12/14/2016 : 1955 Attending Physician: Flaco Ward M.D. Admitting Physician: Flaco Ward M.D. Primary Care Physician: Generic Doctor Not In System [facility] PROGRESS NOTES DATE 12/16/2016 DISCUSSION Mr. Dutta is a 60-year-old, male who was seen today and chart was reviewed and case was discussed with the staff. He has been anxious, withdrawn and rather seclusive to himself. Meanwhile, he has been cooperative with the treatment recommendations. He has been taking the medication and tolerating them fairly well with no reported side effects. MENTAL STATUS EXAM Middle-aged male who was casually dressed with fair personal hygiene, appears to be in no acute distress or discomfort. He was awake and alert on interaction with intact orientation. His mood was anxious with congruent affect. He denies any suicidal or homicidal ideation. His insight and judgement remains slightly impaired. TREATMENT PLAN 1. We will continue him on his current medications and treatment protocol. We will monitor his response to the medication and make further adjustments as needed. 2. We will continue to follow up. Dictated by... Mercedes Lim/heather TD: 12/20/2016 22:24 JOB #: [id number] Unit #: [id number] #: [id number] Patient: DANNY DUTTA [facility] PROGRESS NOTES Page 1 of 1 X Brijesh Rincon MD X PROGRESS NOTE
--- NOTE | ~2016-12-14 | PN ---
Unit #: [id number] #: [id number] Patient: DANNY DUTTA [id number] [facility] [address] [place] [address] [id number] MR#: [id number] NAME: DANNY DUTTA. ROOM: [facility] Age: 60 Sex: M Admission Date: 12/14/2016 : 1955 Attending Physician: Flaco Ward M.D. Admitting Physician: Flaco Ward M.D. Primary Care Physician: Generic Doctor Not In System [facility] PROGRESS NOTES DATE 12/17/2016 DISCUSSION Mr. Dutta is a 60-year-old, white male who was seen today and chart was reviewed and case was discussed with the staff. He has been anxious, withdrawn, irritable, depressed and seclusive to himself needing constant redirection and has been emotionally stable. Meanwhile, he has been taking medications and tolerating them fairly well with no reported side effects. MENTAL STATUS EXAM Middle-aged male who was casually dressed with fair personal hygiene, appears to be in no acute distress or discomfort. He was awake and alert with impaired attention and concentration. His mood was anxious and depressed with congruent affect. His speech was slow and goal directed. He denies any suicidal or homicidal ideation. Also, denies any auditory or visual hallucinations. His insight and judgement remains slightly impaired. TREATMENT PLAN 1. We will continue him on his current medications and treatment protocol. We will monitor his response to the medication and make further adjustments as needed. 2. We will continue to follow up. Dictated by... Mercedes Lim/heather TD: 12/20/2016 22:55 JOB #: [id number] Unit #: [id number] #: [id number] Patient: DANNY DUTTA [facility] PROGRESS NOTES Page 1 of 1 X Brijesh Rincon MD PROGRESS NOTE
--- NOTE | ~2016-12-14 | PN ---
Unit #: [id number] #: [id number] Patient: DANNY DUTTA [id number] [facility] [address] [place] [address] [id number] MR#: [id number] NAME: DANNY DUTTA. ROOM: [facility] Age: 60 Sex: M Admission Date: 12/14/2016 : 1955 Attending Physician: Flaco Ward M.D. Admitting Physician: Flaco Ward M.D. Primary Care Physician: Generic Doctor Not In System [facility] PROGRESS NOTES DATE 12/20/2016 DISCUSSION Mr. Dutta is a 60-year-old male who was seen today and chart was reviewed and case was discussed with the staff. He has been doing fairly well with no agitation, irritability and reports improvement in his mood and daily functioning and has been calm and cooperative with treatment recommendations and has been coming to therapy groups and has been participating. MENTAL STATUS EXAMINATION Middle-aged male who was casually dressed with fair personal hygiene and appears to be in no acute distress or discomfort. He was awake and alert with fair attention and concentration. His mood was anxious with congruent affect. He denies any suicidal or homicidal ideation. His insight and judgement remains slightly impaired. TREATMENT PLAN 1. Will continue him on his current medications and treatment protocol. Will monitor his response to the medications and make further adjustments as needed. 2. Will continue to follow up. Dictated by... Mercedes Lim/nigel TD: 12/20/2016 23:18 JOB #: [id number] Unit #: [id number] #: [id number] Patient: DANNY DUTTA PROGRESS NOTES Page 1 of 1 X Brijesh Rincon MD X PROGRESS NOTE
--- NOTE | ~2016-12-14 | HP ---
Unit #: [id number] #: [id number] Patient: LARRY DUTTA [id number] [facility] [address] [place] [address] [id number] MR#: [id number] NAME: LARRY DUTTA. ROOM: [facility] Age: 60 Sex: M Admission Date: 12/14/2016 : 1955 Attending Physician: Flaco Ward M.D. Admitting Physician: Flaco Ward M.D. Primary Care Physician: Generic Doctor Not In System HISTORY AND PHYSICAL HISTORY OF PRESENT ILLNESS Larry is a 60 year old admitted to [facility] reporting depression and verbalizing wanting to hurt himself. He has had numerous admissions to this facility for the same. Patient was seen and H & P dated 12/03/2016 was reviewed. This is current except he reports that he fell a week ago. He was x-rayed at [facility] by his report and x-rays were within normal limits. He has been walking off and on with the assistances of a cane. He was given a walker to assist his ambulation while on the unit. He is also in ABTS room because of his fall risk. Please see H & P dated 12/03/2016 for complete history and physical exam. Dictated by... Janine Vaughn P.A.-C. for Mercedes Locke/heather TD: 12/14/2016 21:16 JOB #: [id number] HISTORY AND PHYSICAL Page 1 of 1 X Janine Vaughn HISTORY AND PHYSICAL
--- NOTE | ~2016-12-14 | PN ---
Unit #: [id number] #: [id number] Patient: LARRY DUTTA [id number] [facility] [address] [place] [address] [id number] MR#: [id number] NAME: LARRY DUTTA. ROOM: 79 Age: 60 Sex: M Admission Date: 12/14/2016 : 1955 Attending Physician: Flaco Ward M.D. Admitting Physician: Flaco Ward M.D. Primary Care Physician: Generic Doctor Not In System [facility] PROGRESS NOTES DATE 12/19/2016 DISCUSSION Larry is superficially pleasant but is quite demanding. He is demanding provision of a wheeled walker which is unavailable and also demands that one be provided to him at the time of discharge. I explained that this was not within our per view and he would need to contact his primary care physician. He makes multiple excuses why this cannot occur. He is irritable in mood with a congruent affect. He is alert and fully oriented with no evidence of psychosis. He is equivocal about lorenza for safety. ASSESSMENT Bipolar disorder. PLAN Continue current treatment plan, anticipating discharge soon. Dictated by... Flaco Ward M.D. THOM/nigel TD: 12/21/2016 16:02 JOB #: [id number] [facility] PROGRESS NOTES Page 1 of 1 X Flaco Ward MD PROGRESS NOTE
--- NOTE | ~2016-12-14 | PA ---
Unit #: [id number] #: [id number] Patient: LARRY DUTTA [id number] [facility] [address] [place] [address] [id number] I MR#: [id number] NAME: LARRY DUTTA. ROOM: [facility] Age: 60 Sex: M Admission Date: 12/14/2016 : 1955 Date of Assessment: 12/14/2016 Attending Physician: Flaco Ward M.D. Admitting Physician: Flaco Ward M.D. Primary Care Physician: Generic Doctor Not In System PSYCHIATRIC ASSESSMENT INFORMANT(S) Patient, partially reliable. [facility], reliable. [facility], reliable. CHIEF COMPLAINT Auditory hallucinations and homicidal ideation. HISTORY OF PRESENT ILLNESS Larry is a 60-year-old male with multiple admissions to this facility who presented to [facility] reporting that "my lady and I are having trouble, and she cleaned me out of 180 dollars." He also reports "breaking his hip" and says he gets auditory hallucinations telling him to kill someone. He had a blood alcohol of 128. He later reported suicidal ideation to the emergency room doctor with a plan to shoot himself and was transferred to [facility]. PAST PSYCHIATRIC HISTORY Multiple admissions to this facility the last in late November of this year under the care of Dr. Rincon. He continues to be erratically compliant with forms of treatment for bipolar disorder and chemical dependence. FAMILY PSYCHIATRIC HISTORY None reported. SOCIAL HISTORY The patient is single, essentially homeless in the community. He has no long-term unemployment and poor social support system. PAST MEDICAL HISTORY Hypertension, diabetes, asthma, COPD, and congestive heart failure. MEDICATIONS Please see MAR. ALLERGIES Lisinopril, iodine. SUBSTANCE ABUSE HISTORY The patient has a history of alcohol abuse but denies any long-term problems. MENTAL STATUS EXAMINATION Larry presented as a disheveled man who appeared older than his stated Unit #: [id number] #: [id number] Patient: LARRY DUTTA age. He was somewhat irritable but cooperative with examination. Musculoskeletal examination was suggestive of hip pain. His mood was irritable and depressed with a congruent affect. He was alert and fully oriented. His memory and concentration were fair to good. His thought processes were goal-directed with no active psychosis. He reported suicidal ideation with a plan to shoot himself and could not contract for safety. Insight and judgment were fair. Fund of knowledge and abstraction were fair. ASSETS AND LIABILITIES The patient is familiar with local resources, presents voluntarily for treatment. Liabilities include noncompliance and substance use. ADMITTING DIAGNOSES AXIS I: Bipolar 1 disorder, most recent episode, depressed, F31.4. Alcohol abuse. AXIS II: Antisocial traits. AXIS III: Hypertension, asthma, diabetes, COPD, degenerative disk disease. PSYCHIATRIC PLAN/TREATMENT GOALS/DISCHARGE PLANNING The patient was admitted and placed on suicide precautions. We will monitor him for alcohol detox symptoms and restart his home medications as listed in his last discharge summary. A physical examination and medical consultation will be obtained as indicated. Treatment goals are resolution of SI, improvement in insight, improvement in coping skills. Discharge planning: Follow up with community mental health and primary care physician. ESTIMATED LENGTH OF STAY 5 days. Dictated by... Flaco Ward M.D. H/bzdolly TD: 12/15/2016 12:46 JOB #: [id number] PSYCHIATRIC ASSESSMENT Page 1 of 1 X Flaco Ward MD X PSYCHIATRIC ASSESSMENT
--- NOTE | ~2016-12-14 | PN ---
Unit #: [id number] #: [id number] Patient: DANNY DUTTA [id number] [facility] [address] [place] [address] [id number] MR#: [id number] NAME: DANNY DUTTA. ROOM: [facility] Age: 60 Sex: M Admission Date: 12/14/2016 : 1955 Attending Physician: Flaco Ward M.D. Admitting Physician: Flaco Ward M.D. Primary Care Physician: Generic Doctor Not In System [facility] PROGRESS NOTES DATE 12/19/2016 DISCUSSION Mr. Dutta is a 60-year-old male who was seen today and chart was reviewed and case was discussed with the staff. He has been anxious, withdrawn and rather seclusive to himself. Meanwhile, he has been cooperative with treatment recommendations and has been taking medications and tolerating them fairly well with no reported side effects. MENTAL STATUS EXAMINATION Middle-aged male who was casually dressed with fair personal hygiene and appears to be in no acute distress or discomfort. He was awake and alert with intact orientation. His mood was anxious with congruent affect. He denies any suicidal or homicidal ideation. His insight and judgement remains slightly impaired. TREATMENT PLAN 1. Will continue on his current treatment protocol. Will monitor his response to the medications and make further adjustments as needed. 2. Will continue to follow up. Dictated by... Brijesh Rincon M.D. ORI/nigel TD: 12/20/2016 23:08 JOB #: [id number] Unit #: [id number] #: [id number] Patient: DANNY DUTTA [facility] PROGRESS NOTES Page 1 of 1 X Brijesh Rincon MD X PROGRESS NOTE
--- NOTE | ~2016-12-14 | PN ---
Unit #: [id number] #: [id number] Patient: DANNY DUTTA [id number] [facility] [address] [place] [address] [id number] MR#: [id number] NAME: DANNY DUTTA. ROOM: [facility] Age: 60 Sex: M Admission Date: 12/14/2016 : 1955 Attending Physician: Flaco Ward M.D. Admitting Physician: Flaco Ward M.D. Primary Care Physician: Generic Doctor Not In System [facility] PROGRESS NOTES DATE 12/17/2016 DISCUSSION Mr. Dutta continues to be irritable and somewhat entitled. He demands (1)____ amount of attention from nursing staff and claims to have significant hip pain although he appears to be getting around reasonably well with his walker. He is alert and fully oriented with no psychosis but ongoing SI. ASSESSMENT Bipolar depressed. PLAN Continue current treatment plan. Dictated by... Mecredes Lomas/heather TD: 12/21/2016 22:21 JOB #: [id number] [facility] PROGRESS NOTES Page 1 of 1 X Flaco Ward MD PROGRESS NOTE
[2016-12-15 13:00] LABS: AMPHETAMINE NEG (NEG); BARBITURATES NEG (NEG); BENZODIAZEPINES NEG (NEG); COCAINE NEG (NEG); MARIJUANA NEG (NEG); OPIATES NEG (NEG); TRICYCLIC ANTIDEPRESSANTS NEG (NEG); U METHADONE NEG (NEG)
== END 2016-12-20 13:05 | DRG 885 ==
LOC: P1E 07:02
PROVIDERS: Psychiatry & Neurology Psychiatry
DX: F31.9 Bipolar disorder, unspecified (principal); E11.9 Type 2 diabetes mellitus without complications; R45.851 Suicidal ideations; Z72.811 Adult antisocial behavior; I10 Essential (primary) hypertension; J44.9 Chronic obstructive pulmonary disease, unspecified; F10.10 Alcohol abuse, uncomplicated; Z88.8 Allergy status to other drugs, medicaments and biological substances; Z59.0 Homelessness
CPT/HCPCS: 80307; 82947